=== PATIENT | female | born 1960 ===

== ENCOUNTER 2020-12-17 10:30 | Inpatient (IN) | payer OTHER ==
[~2020-12-17] VITALS: Ht 165.1 cm; Wt 70.8 kg
[2020-12-17] MEDS ORDERED: ALENDRONATE SOD70 MG PO (13:21)
[2020-12-17] MEDS ORDERED: JARDIANCE10 MG PO (13:22)
[2020-12-17] MEDS ORDERED: LYRICA PO (13:22)
[2020-12-17] MEDS ORDERED: CRESTOR20 MG PO (13:22)
[2020-12-17] MEDS ORDERED: ZESTRIL40 M1 PO (13:23)
[2020-12-17] MEDS ORDERED: CLONAZEPAM0.5 MG PO (13:23)
[2020-12-17] MEDS ORDERED: BUPRO PO (13:24)
[2020-12-17] MEDS ORDERED: DECADRON4 MG PO (13:24)
[2020-12-17] MEDS ORDERED: SINGULAIR10 MG PO (13:24)
[2020-12-19] MEDS ORDERED: BUPROPION HCL150 M1 (13:44)
[2020-12-19] MEDS ORDERED: DICLOFENAC SOD100 GM (13:44)
[2020-12-19] MEDS ORDERED: METFORMIN HCL500 M4 (13:44)
[2020-12-19] MEDS ORDERED: PREGABALIN50 MG (13:44)
[2020-12-19] MEDS ORDERED: VENLAFAXINE HC150 MG (13:44)
[2020-12-19] MEDS ORDERED: OLANZAPINE2.5 MG (13:44)
[2020-12-19] MEDS ORDERED: ATENOLOL-CHLOR1 EACH (13:45)
[2020-12-19] MEDS ORDERED: GABAPENTIN600 MG (13:45)
[2020-12-20] MEDS ORDERED: ULTRAM50 MG PO (13:15)
[2020-12-20] MEDS ORDERED: INTESTINEX680 M1 PO (13:17)
== END 2020-12-20 13:21 | disposition home or self-care (01) | DRG 331 ==
LOC: O/R 12-19 10:00 → SURG 12-19 10:30
PROVIDERS: ADMIT Surgery; ATTEND Surgery
PROC: 0DSP8ZZ Reposition Rectum, Via Natural or Artificial Opening Endoscopic (ICD-10-PCS; principal; 2020-12-19 13:45)
DX: K62.3 Rectal prolapse (principal)